=== PATIENT | male | born 1960 | race Caucasian/White ===

== ENCOUNTER → 2024-10-23 | Outpatient (CLI) | payer OTHER, SELFPAY ==
--- NOTE | 2024-10-23 12:54 | NEURO ---
NCS and/or EMG Patient Report Ordering Doctor: Ginger Singh DATE OF SERVICE: 10/23/24 Rickey presents with complaints of numbness and tingling in both feet and lower legs. He has a history of intermittent lower back pain. Electrodiagnostic findings: Right peroneal motor nerve demonstrates normal distal latency, amplitude with reduced conduction velocity. Left peroneal motor nerve demonstrates prolonged latency with reduced amplitude and reduced conduction velocity. Tibial motor nerve demonstrates prolonged distal latency bilaterally with reduced amplitudes and reduced conduction velocities. Prolonged right tibial, left tibial and left peroneal F?waves. Prolonged H?reflex bilaterally. Prolonged sural latency bilaterally. Superficial peroneal responses within normal limits bilaterally. Needle EMG testing was performed in the lower limbs. Muscles tested showed no evidence of denervation with normal motor unit action potentials. Electrodiagnostic impression: This is an abnormal study. 1. 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 There is a combination of axonal loss and demyelination. 2. No electrodiagnostic evidence is noted for lumbosacral radiculopathy
== END | disposition home or self-care (01) ==
PROVIDERS: PCP Family Medicine; Referring Provider Physician Assistant; Visit Provider Physician Assistant
DX: G62.9 Polyneuropathy, unspecified (principal)
CPT/HCPCS: 95886; 95911

== ENCOUNTER → 2024-12-16 | Outpatient (CLI) | payer OTHER, SELFPAY ==
[2024-12-16 10:52] LABS: Vitamin B12 427 pg/mL (211-911)
[2024-12-16 10:55] LABS: Erythrocyte Sedimentation Rate 7 mm/hr (0-20)
[2024-12-16 11:06] LABS: Hemoglobin A1c 5.7 % (3.8-5.6)
[2024-12-16 11:31] LABS: CRP 8.48 mg/L (0.0-3.0)
[2024-12-17 10:08] LABS: ANTINUCLEAR ANTIBODIES DIRECT Negative (Negative)
[2024-12-18 14:08] LABS: Albumin 3.6 g/dL (2.9-4.4); Alpha-1-Globulins 0.2 g/dL (0.0-0.4); Alpha-2-Globulins 0.7 g/dL (0.4-1.0); Arsenic 7245 1 ug/L (0-9); Free Kappa Light Chains 38.6 mg/L (3.3-19.4); Free Lambda Light Chains 28.1 mg/L (5.7-26.3); Gamma Globulin 1.2 g/dL (0.4-1.8); Immunoglobulin A 211 mg/dL (61-437); Immunoglobulin G 1224 mg/dL (603-1613); Immunoglobulin M 93 mg/dL (20-172); Lead, Blood < 1.0 ug/dL (0.0-3.4); Mercury, Blood 85324 < 1.0 ug/L (0.0-14.9); PROEL- TOTAL PROTEIN 6.6 g/dL (6.0-8.5)
== END | disposition home or self-care (01) ==
LOC: MTLAB 09:18
PROVIDERS: PCP Physician Assistant; Referring Provider Psychiatry & Neurology Neurology; Visit Provider Psychiatry & Neurology Neurology
DX: G62.9 Polyneuropathy, unspecified (principal)
CPT/HCPCS: 36415; 82175; 82607; 82746; 82784; 83036; 83655; 83825; 83883; 84165; 85652; 86038; 86140; 86334

== ENCOUNTER → 2025-03-03 | Outpatient (CLI) | payer OTHER, SELFPAY ==
[2025-03-03 16:10] LABS: Erythrocyte Sedimentation Rate 8 mm/hr (0-20)
[2025-03-03 19:48] LABS: CRP 6.63 mg/L (0.0-3.0); HIV Nonreactive (Nonreactive); Magnesium 2.1 mg/dL (1.5-2.2)
[2025-03-05 15:08] LABS: Lyme Scn Total Ab w/Rflx Negative (Negative)
== END | disposition home or self-care (01) ==
LOC: MTLAB 14:01
PROVIDERS: PCP Physician Assistant
DX: G62.9 Polyneuropathy, unspecified (principal)
CPT/HCPCS: 36415; 83735; 85652; 86140; 86618; 86703